=== PATIENT | female | born 1965 | race Two or more races ===

== ENCOUNTER 2023-02-14 13:27 | Emergency (ER) | payer MEDICAID, OTHER ==
[~2023-02-14] VITALS: Ht 157.5 cm; Wt 97.2 kg
[2023-02-14 14:58] LABS: Urine Bacteria NONE SEEN /hpf (None Seen); Urine Blood Negative /uL (Negative); Urine Clarity HAZY (Clear); Urine Color Yellow (Yellow); Urine Hyaline Cast FEW /lpf (0 - 2); Urine Protein, UAD 1+ (Negative); Urine Specific Gravity 1.015 (1.001-1.035); Urine Urobilinogen Normal (Negative); Urine WBC 64 /hpf (0 - 5); Urine pH 5.5 (5.0-8.0)
[2023-02-14] MEDS ORDERED: NITR-87 PO (17:08)
[2023-02-14 18:07] VITALS: BP 128/82; PULSE 81; RESP 18; TEMP 97.9; O2SAT 99
== END 2023-02-14 18:09 | disposition home or self-care (01) ==
LOC: ER 13:27
DX: N39.0 Urinary tract infection, site not specified (principal); E11.9 Type 2 diabetes mellitus without complications; E03.9 Hypothyroidism, unspecified; E78.5 Hyperlipidemia, unspecified
CPT/HCPCS: 81001

== ENCOUNTER 2024-02-13 11:17 | Emergency (ER) | payer MEDICAID ==
[~2024-02-13] VITALS: Ht 157.5 cm; Wt 79.0 kg
[~2024-02-13 11:17] MED LIST: NITR-87 PO
--- NOTE | 2024-02-13 11:40 | ED.PDOC ---
Musculoskeletal HPI Comments HPI: Poor Historian. 58-year-old female presents to the emergency department for evaluation of acute on chronic left ankle pain. Patient is status post left ankle fracture in November 14 in she had a splint for approximately six weeks and that was removed at [facility]. Patient has a follow up with [facility] again this coming April. Patient is ambulating independently in the ED. patient is complaining of left ankle pain points to her lateral malleoli region. Denies any other acute symptoms. She has been taking ibuprofen for her pain at home. Past Medcial History: Diabetes, thyroid disease, hyperlipidemia, obesity Past Surgical History: REVIEW OF SYSTEMS: CONSTITUTIONAL: Denies acute: fever, diaphoresis, chills, generalized weakness. HEAD: Denies acute: headache, photophobia Eyes: Denies acute: Double vision, vision loss, eye pain, eye discharge. EARS: Denies acute: tinnitus, hearing loss, ear discharge, ear pain, THROAT: Denies acute: sore throat, swelling, difficulty swallowing , pain with swallowing, change in voice. NECK: Denies acute: neck pain, neck swelling, stiff neck. HEART: Denies acute : chest pain, palpitations, LUNGS: Denies acute: SOB, wheezing, cough, hemoptysis ABDOMEN: Denies acute: abdominal pain, Nausea, Vomiting, diarrhea, melena , hematemesis, hematochezia SKIN: Denies acute: rash, redness, lesions, itchiness. EXTREMITIES: Denies acute: calf pain, numbness, tingling, weakness, Denies acute: Low back pain. Neuro: Denies acute: focal neurological deficit, motor or sensory focal neurological deficit, tremors, seizure like activity, confusion, dizziness, change in mental status, loss of bowel or bladder function, cauda equina like symptoms. : Denies acute: dysuria, hematuria, flank pain, increase in urinary frequency. PSYCH: Denies acute: hallucination, suicidal ideation, homicidal ideation. FEMALE: Denies acute: abnormal vaginal bleeding, foul odor, unusual discharge. PHYSICAL EXAM: General: no acute distress, awake and alert. Head: normocephalic, atraumatic. Neck: supple, trachea is midline, no swelling. Throat: Normal phonation. Eyes:, no erythema, no purulent discharge, no proptosis, no icterus. Heart: regular rate, regular rhythm, no significant murmur appreciated. Lungs: no apparent respiratory distress, Able to speak in full sentences. No wheezing, no rhonchi, no crackles. No stridors Clear to auscultation bilaterally. Abdomen: non tender to palpation, non distended, soft, no guarding, no rebound, + bowel sounds. Neuro: Awake, Alert, oriented to name, self, situation, follows commands GCS=15. Speech is normal. Skin: no petechia, no purpura, no cyanosis, non-pale, not jaundice. Lower extremities: --no - Pitting edema no deformity, no calf TTP. Evaluation of the left ankle. Patient has some mild puffiness in the left lateral malleoli and minimal tenderness to palpation. Patient is neurovascularly intact in the affected extremity. Motor and sensory are present in the affected extremity. Makes eye contact. moves all four extremities. Face: no apparent facial droop. Ambulating in the ED independently. Chief Complaint: Lower Extremity Time Seen by MD: 11:25 Primary Care Provider: none Reviewed Notes: Nurses Notes, Medications Allergies: Coded Allergies: NO KNOWN ALLERGIES (Unverified , 02/14/23) Home Meds Active Scripts Nitrofurantoin Monohydrate Mac (Macrobid) 100 Mg Cap, 100 MG PO BID for 7 Days, #14 CAP Prov:CASSIDY MARTINEZ 02/14/23 Information Source: Patient Mode of Arrival: Ambulatory Past Medical History PAST MEDICAL HISTORY: DM, High Lipids, Thyroid Surgical History: Denies all surgeries [employer] History: No Pertinent [employer] History Was a procedure done? Was a procedure done?: No Differential Diagnosis EXT Differential Diagnosis: Other (Leg swellingDdx include but not limited to DVT, ischemic limb, pitting edema, volume overload, CHF, cellulitis, hematoma, compartment syndrome, dependent edema, venous stasis.) X-Ray, Labs, Meds, VS Vital Signs Date Time Temp Pulse Resp B/P (MAP) Pulse Ox O2 Delivery O2 Flow Rate FiO2 02/13/24 15:48 98.1 84 16 135/56 (82) 98 98.1 02/13/24 15:47 Room Air* 0 21 02/13/24 11:28 98.0 85 17 141/55 (83) 99 [facility] [id number] [facility] [address] Ph: [phone] DIAGNOSTIC IMAGING Diagnostic Imaging Report : [id number] Signed PATIENT: KYUNG COLLINS ACCT: [id number] UNIT: [id number] : 1965 LOC: ER ROOM / BED: / AGE / SEX: 58 / F ADM STATUS: REG ER SERVICE 1136 ORDERING PHYSICIAN: WILLOW RODRIGUEZ DO PROCEDURE(s): LANKL - L ANKLE 3 VIEW REASON: L ankle pain, h/o of remote fracture ORDER NUMBER(s): [id number], ACCESSION NUMBER(s): [id number] CLINICAL INDICATION: L ankle pain, h/o of remote fracture TECHNIQUE: 3 radiographic views of the left ankle were obtained. Comparison: None FINDINGS/IMPRESSION: Chronic fracture of the distal fibula with heterotopic calcification. Small plantar calcaneal enthesophyte. ATED BY: DORIS RODRIGUEZ MD DICTATED DATE/TIME: 02/13/241214 SIGNED BY: DORIS RODRIGUEZ MD SIGNED DATE/TIME: 02/13/241214 CC: Time of 1ST Reevaluation: 15:00 Reevaluation 1ST: Unchanged Patient Education/Counseling: Diagnosis, Treatment Family Education/Counseling: No Family Present Comments Patient presented with the above HPI.---ankle pain and swelling---workup was initiated. patient was found with the above mentioned diagnosis. Patient was given: Suleman wrap of the affected extremity. Patient ED course and VS have been stabilized. Patient has been reassessed in the ED and remained in a stable condition. Pertinent incidental findings were discussed with the patient and/or family. Patient/family voices understanding and is agreeable with plan. Patient has been observed in the ED adequate length of time to insure improvement/stability. patient was discharged home in a stable condition. All the reports of any imaging studies that were ordered by myself were reviewed by myself. Departure 1 Departure Time of Disposition: 15:11 Impression: Primary Impression: Left ankle pain Disposition: 01 HOME / SELF CARE / HOMELESS Condition: Stable Additional Instructions: HPI: Poor Historian. Past Medcial History: Past Surgical History: REVIEW OF SYSTEMS: CONSTITUTIONAL: Denies acute: fever, diaphoresis, chills, generalized weakness. HEAD: Denies acute: headache, photophobia Eyes: Denies acute: Double vision, vision loss, eye pain, eye discharge. EARS: Additional discharge instructions: You MUST follow-up with your primary care/family doctor in 1 to 2 days. If you are unable to see your primary care/family doctor, please return to our emergency room for re-assessment and re-evaluation in 1 to 2 days. Return to the emergency room here in our facility or to the nearest ER [facility] if your symptoms change or worsen. CONSULTATIONS: you MUST Follow-up for consultation as soon as possible with: -orthopedic doctor in 1-2 days. Please call for appointment. You MUST call the consultants office yourself to make an appointment. You may need to arrange that through your insurance and/or your primary/family doctor. If you are unable to see the small business consultant in 1 to 2 days, you must return to our emergency room (or any other ER of your choice) for re-assessment and re- evaluation. Adequate fluid hydration. Leg elevation. Ice. Below is a copy of your radiological report for follow up: [place] [address] Ph: [phone] DIAGNOSTIC IMAGING Diagnostic Imaging Report : [id number] Signed PATIENT: KYUNG COLLINS ACCT: [id number] UNIT: [id number] : 1965 LOC: ER ROOM / BED: / AGE / SEX: 58 / F ADM STATUS: REG ER SERVICE 1136 ORDERING PHYSICIAN: WILLOW RODRIGUEZ DO PROCEDURE(s): LANKL - L ANKLE 3 VIEW REASON: L ankle pain, h/o of remote fracture ORDER NUMBER(s): [id number], ACCESSION NUMBER(s): [id number] CLINICAL INDICATION: L ankle pain, h/o of remote fracture TECHNIQUE: 3 radiographic views of the left ankle were obtained. Comparison: None FINDINGS/IMPRESSION: Chronic fracture of the distal fibula with heterotopic calcification. Small plantar calcaneal enthesophyte. ATED BY: DORIS RODRIGUEZ MD DICTATED DATE/TIME: 02/13/24 1215 SIGNED BY: DORIS RODRIGUEZ MD SIGNED DATE/TIME: 02/13/241214 CC: Discharged With: Self Critical Care Note Critical Care Time?: No WILLOW RODRIGUEZ DO Feb 13, 2024 11:40
--- NOTE | 2024-02-13 12:17 | DVH ---
CLINICAL INDICATION: L ankle pain, h/o of remote fracture TECHNIQUE: 3 radiographic views of the left ankle were obtained. Comparison: None FINDINGS/IMPRESSION: Chronic fracture of the distal fibula with heterotopic calcification. Small plantar calcaneal entheso phyte.
[2024-02-13 15:48] VITALS: BP 135/56; PULSE 84; RESP 16; TEMP 98.1; O2SAT 98
== END 2024-02-13 15:48 | disposition home or self-care (01) ==
LOC: ER 11:17
DX: M25.572 Pain in left ankle and joints of left foot (principal); M77.32 Calcaneal spur, left foot; E11.9 Type 2 diabetes mellitus without complications; E78.5 Hyperlipidemia, unspecified; G89.29 Other chronic pain
CPT/HCPCS: 73610